=== PATIENT | female | born 1960 | race Caucasian/White ===

== ENCOUNTER 2019-05-18 21:39 | Emergency (ER) | payer OTHER ==
[~2019-05-18] VITALS: Ht 157.5 cm; Wt 78.0 kg
[~2019-05-18 21:39] MED LIST: NAPR-985 PO
[2019-05-18 21:48] VITALS: Ht 157.5 cm; Wt 78.0 kg
[2019-05-19] MEDS ORDERED: KETOROLAC 30 MG INJ IM STA (00:16)
[2019-05-19] MEDS ORDERED: DEXAMETHASONE 10 MG/ML 1 ML INJ IM ONE (00:30)
--- NOTE | 2019-05-19 01:57 | ERD ---
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 Her pain is rated 9/10 in severity, constant, worse with movement. She tried meloxicam at home for the pain this morning. She denies any chest pain, shortness of breath. She denies other symptoms at this time. ROS All systems reviewed and are negative except as per history of present illness. Medications Home Meds Active Scripts Naproxen* (Naprosyn*) 500 Mg Tablet, 500 MG PO BID PRN for PAIN AND/OR INFLAMMATION, #30 TAB Prov:GARETT ESPINAL PA-C 05/19/19 PMhx/Soc Medical and Surgical Hx: pt denies Medical Hx, pt denies Surgical Hx Hx Alcohol Use: No Hx Substance Use: No Hx Tobacco Use: No Smoking Status: Never smoker FmHx Family History: No diabetes Physical Exam Vitals Vital Signs Date Temp Pulse Resp B/P (MAP) Pulse Ox O2 O2 Flow FiO2 Time Delivery Rate 05/18/19 97.8 95 18 140/75 98 21:48 (96) Physical Exam Const: No acute distress Head: Atraumatic Eyes: Normal Conjunctiva ENT: Normal External Ears, Nose and Mouth. Neck: Full range of motion. No meningismus. Resp: Clear to auscultation bilaterally Cardio: Regular rate and rhythm, no murmurs Skin: No petechiae or rashes Back: No midline or flank tenderness Ext: Tenderness palpation of the anterior aspect of the right shoulder. Limited range of motion of the right shoulder secondary to pain. Neur: Awake and alert Psych: Normal Mood and Affect Results 24 hrs Current Medications Medications Dose Sig/Michelle Start Time Status Last (Trade) Ordered Route PRN Stop Time Admin Dose Reason Admin Ketorolac 30 mg ONCE STAT 05/19/19 DC 05/19/19 Tromethamine IM 00:16 00:23 (Toradol) 05/19/19 00:17 10 mg ONCE ONCE 05/19/19 DC 05/19/19 Dexamethasone IM 00:30 00:23 (Decadron) 05/19/19 00:31 [place] [id number] Radiology Main Line: [phone] DIAGNOSTIC IMAGING REPORT Patient: SANDRA MARI : 1960 Age: 59 Sex: F MR #: [id number] DOS: 05/19/19 0000 Ordering MD: GARETT ESPINAL PA-C Location: [facility] Room/Bed: PROCEDURE: Right shoulder. CLINICAL INDICATION: Pain. TECHNIQUE: Three views of the right shoulder. COMPARISON: None. FINDINGS: There is no fracture, dislocation or bone destruction. The joint spaces are within normal limits. Bone mineralization is within normal limits. There is no radiopaque foreign body or abnormal calcification. IMPRESSION: Unremarkable right shoulder. .Jd Richards MD, MD Date Time Electronically viewed and signed by .Jd Richards MD, MD on 05/19/2019 01:31 .T/ CC: GARETT ESPINAL PA-C [id number] Procedures/MDM 59-year-old female presents to the emergency department for right shoulder pain. Symptoms are likely secondary to acute exacerbation of patient's tendinitis of the right shoulder. X-ray was negative for any sign of fracture. She is stable and appropriate for discharge and further outpatient management. She will be given prescription for naproxen and advised to follow-up with orthopedic physician. She should return here for any new or worsening or concerning symptoms. She understands and agrees with the plan. Departure Diagnosis: Primary Impression: Right shoulder pain Condition: Fair Patient Instructions: Tendonitis [facility] Usted se yost hecho un examen mdico de control que le indica que no est en otoniel condicin que requiera tratamiento urgente en el Departamento de Emergencia. Un estudio ms profundo y el tratamiento de to condicin pueden esperar sin ningn riesgo hasta que usted sea atendida/o en el consultorio de to mdico o otoniel clnica. Es responsabilidad suya arreglar otoniel jorge para el seguimiento del zoila. MANEJO DE CONDICIONES NO URGENTES EN EL FUTURO 1) Si usted tiene un mdico de atencin primaria: Usted debera llamar a to mdico de atencin primaria antes de venir al departamento de emergencia. Despus de las horas de consultorio, to doctor o to asociado/a est disponible por telfono. El mdico o enfermero de toshia en el servicio telefnico puede asesorarle por kareem medio para atender el problema, o zoila contrario se puede programar otoniel jorge. 2) Si usted no tiene un mdico de atencin primaria: Llame al mdico o clnica de referencia que aparece abajo júnior las horas de consultorio para hacer otoniel jorge para que le vean. CLINICAS: [facility] [phone] [facility] [phone] [facility]. [facility] [phone] [facility]. [place] [id number] [phone] [facility]. [place] [id number] [phone] [facility]. [phone] Additional Instructions: Llame al doctor MAANA y gray otoniel JORGE PARA DENTRO DE 1-2 JEWELL.Dgale a la se cretaria que nosotros le instruimos hacer esta jorge.Avise o llame si to condicin se empeora antes de la jorge. Regresa aqui si peor o no mejor. GARETT ESPINAL PA-C May 19, 2019 01:57
[2019-05-19 02:04] VITALS: BP 120/65; PULSE 84; RESP 17
== END 2019-05-19 02:10 | disposition home or self-care (01) ==
LOC: FTE 21:39
DX: M25.511 Pain in right shoulder (principal)
CPT/HCPCS: 73030; 96372; J1100; J1885; Z7502